=== PATIENT | female | born 1955 | race Caucasian/White ===

== ENCOUNTER 2024-02-27 23:29 | Observation (INO) ==
--- NOTE | 2024-02-27 23:39 | ED.PDOC ---
General ED Provider: Dr. MI ZAPATA MD Chief Complaint: Arrhythmia Stated Complaint: Pt has h/o afib s/p ablation one year ago, CHF and presents with generalized weakness. States symptoms started 4-5 days ago, initially mild. Started feeling worse 2 days ago. Reports aching all over, nausea, chest pain when she eats or drinks, flank pain. Has felt feverish and had chills but has not checked temperature. Denies cough. Feels SOB with exertion. States she made herself vomit once, but otherwise no vomiting. Denies palpitations or syncope. Reports urinary frequency, no dysuria. Takes eliquis, digoxin, and metoprolol, but has not taken any of her meds today because she has felt too bad. on EMS arrival was found to be in afib with RVR with initial rate around 200. 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 Time Seen by Provider: 02/27/24 23:34 Mode of Arrival: Ambulance Information Source: Patient and EMT Exam Limitations: No limitations Nursing and Triage Documentation Reviewed and Agree: Yes What is Opioid Naive?: *Opioid Naive implies the patient is not already taking opioids or not chronically receiving opioids on a daily basis. *PRN dosing is not "usually" associated with tolerance. *Patients are at higher risk of over-sedation and aspiration. What is Opioid Tolerant?: *Opioid Tolerance implies less than the expected response to an opioid. *Acquired tolerance is defined by the patient taking 60mg of oral morphine daily (or equianalgesic dose of another opioid) for 1 week or more. *Often associated with chronic pain. *May take more than usual dose to achieve desired pain control. Review of Systems Review Of Systems Constitutional: Reports Chills, Malaise and Sweats Eyes: Reports No symptoms Ears, Nose, Mouth, Throat: Reports No symptoms Respiratory: Reports Shortness of Breath; Denies Cough Cardiac: Reports Chest pain; Denies Palpitations or Syncope GI: Reports Difficulty swallowing, Nausea and Vomiting; Denies Abdominal pain or Diarrhea : Reports Frequency and Flank pain; Denies Dysuria Musculoskeletal: Reports No symptoms Skin: Reports No symptoms Neurological: Reports Weakness Endocrine: Reports No symptoms [facility] Medical History (Updated 02/28/24 @ 01:17 by MI ZAPATA MD) Hypertension I10 - Essential (primary) hypertension (ICD-10) Family History (Updated 09/12/20 @ 14:29 by CANDICE NGUYEN) Mother Hypertension FATHER No problems noted. Social History (Updated 09/12/20 @ 14:28 by CANDICE NGUYEN) Smoking and tobacco status: Never smoker Alcohol intake: never Substance use type: does not use Physical Exam Physical Exam Appearance: Reports Well-appearing, No pain distress and Well-nourished Ill-appearing: None Pain Distress: None Eyes: Reports Conjunctiva clear ENT: Reports Nose normal Neck: Supple Respiratory: Reports Airway patent, Breath sounds clear, Breath sounds equal and Respirations nonlabored Cardiovascular: Reports Irregular rhythm and Tachycardia GI/: Reports Soft and Bowel sounds normal; Denies Nontender (tenderness to suprapubic area without rebound, guarding or rigidity.) Musculoskeletal: Reports ROM intact Skin: Reports Warm and Dry Neurological: Reports Alert and Oriented; Denies Focal Deficit Psychiatric: Reports Mood appropriate Interpretation EKG Interpretation EKG Interpretation By: ED Physician Time of EKG #1: 23:29 Rate: Tachy Rhythm: Other (afib with RVR) Robinson: NL ST Segment: Other (ST depression laterally, no GEOFF) Radiology Interpretation Radiology Interpretation By: Radiologist Radiology Results: No acute changes Exam Interpreted: CXR Physician Notification Case Discussed Physician Notified: Mick Nguyen Time of Notification: 01:16 Admit/Transition Orders Entered by ED Provider: Yes Admit To: Observation Critical Care Note Critical Care Note Total Critical Care Time (mins): 35 Comments: Independent of procedures. involved history, exam, ordering labs, interpreting EKG/labs/CXR, ordering medications, re-evaluating, talking to admitting provider. Course Course 02/27/24 23:38 02/27/24 23:38 Orders, Labs, Meds: Lab Review 02/27/24 23:38 WBC 14.65 H RBC 4.94 Hgb 15.9 Hct 48.7 H MCV 98.6 MCH 32.2 H MCHC 32.6 RDW Coeff of Corin 13.6 Plt Count 280 Neutrophils % (Manual) 76.0 H Band Neutrophils % 1.0 Lymphocytes % (Manual) 8.0 L Monocytes % (Manual) 13.0 H Reactive Lymphocytes 2.0 Anisocytosis Not present Sodium 138.5 Potassium 3.61 Chloride 99.0 Carbon Dioxide 25.6 Anion Gap 17.51 BUN 18.3 H Creatinine 1.07 Estimated GFR (MDRD) 51.00 BUN/Creatinine Ratio 17.10 Glucose 140.9 H Calcium 9.22 Magnesium 1.88 Total Bilirubin 1.95 H AST 29.3 ALT 18.8 Alkaline Phosphatase 105.9 Troponin I Pending NT-Pro-B Natriuret Pep Pending Total Protein 7.81 Albumin 4.46 Globulin 3.35 Albumin/Globulin Ratio 1.33 TSH Pending Digoxin 0.49 L Orders Category Date Time Status EKG-(ED ONLY) Stat CARDIO 02/27/24 23:34 Completed PULSE OX [CONTINUOUS PULSE OX (NURSING)] PULSEOX CARE 02/27/24 23:34 Active Rn Pediatric [ED CEN[employer]AL SERVICE [employer]Y DISTRIBUTOR APPLIED] .ONCE EMERGENCY 02/27/24 23:34 Active IV [ED IV/MEDIPORT/POWERPORT] .ONCE EMERGENCY 02/27/24 23:34 Active CBC W/ AUTO DIFF Stat LAB 02/27/24 23:38 Completed CMP [COMPREHENSIVE METABOLIC PANEL] Stat LAB 02/27/24 23:38 Results DIGOXIN Stat LAB 02/27/24 23:38 Completed MAGNESIUM Stat LAB 02/27/24 23:38 Results MANUAL DIFFERENTIAL Stat LAB 02/27/24 23:38 Completed NT-PROBNP(ED) Stat LAB 02/27/24 23:38 Results PT WITH INR Stat LAB 02/27/24 23:38 Received PTT [PARTIAL THROMBOPLASTIN TIME] Stat LAB 02/27/24 23:38 Received TROPONIN I Stat LAB 02/27/24 23:38 Results TSH [THYROID STIMULATING HORMONE] Stat LAB 02/27/24 23:38 Results 0.9 % Sodium Chloride [Saline Flush] Meds 02/27/24 23:34 Active 1 syr IVF PRN PRN Diltiazem HCl [Cardizem] 125 mg Meds 02/27/24 23:45 Active 0.9 % Sodium Chloride [Sodium Chloride 100Ml] 100 ml IV TITRATION Sodium Chloride 0.9% [Sodium Chloride] 1,000 ml Meds 02/27/24 23:34 Active IV BOLUS CHEST, 1V AP ONLY Stat RADS 02/27/24 23:34 Ordered Medications Generic Name Dose Route Start Last Admin Trade Name Freq PRN Reason Stop Dose Admin Sodium Chloride 1,000 mls @ 250 mls/hr 02/27/24 23:34 02/28/24 00:05 Sodium Chloride IV 10/26/24 03:33 250 mls/hr BOLUS ONE Administration Diltiazem HCl 125 mg/ Sodium 125 mls @ 5 mls/hr 02/27/24 23:45 02/28/24 00:03 Chloride IV 5 mg/hr TITRATION GREGORY 5 mls/hr Administration Protocol 5 MG/HR Sodium Chloride 1 syr 02/27/24 23:34 0.9% Sodium Chloride 10 Ml Disp.Syrin IVF PRN PRN To flush IV Vital Signs: Temp Pulse Resp BP Pulse Ox 02/27/24 23:30 98.7 F 180 H 20 0/0 L 94 L MILTON Risk Score MILTON Risk Score: Risk Score Odds of by 30D 0 0.1 (0.1-0.2) 1 0.3 (0.2-0.3) 2 0.4 (0.3-0.5) 3 0.7 (0.6-0.9) 4 1.2 (1.0-1.5) 5 2.2 (1.9-2.6) 6 3.0 (2.5-3.6) 7 4.8 (3.8-6.1) Physician Progress Note: Discussed lab, EKG and CXR results with patient. She was started on a diltiazem drip on arrival and given small fluid bolus. Her drip is now at 15mg/hr and current HR in 110s-120s with BP 158/95. Labs show leukocytosis, and elevated BNP, but CXR does not show any evidence of pulmonary edema or pleural effusion or other acute abnormality. Her troponin is normal. Cath UA concerning for possible UTI so will order rocephin. I spoke with Mick Nguyen about admission and she has agreed with admission here. Discharge Plan Discharge Patient Disposition: ADMITTED INPATIENT Discharge Problem: Atrial fibrillation with RVR, Acute UTI Prescriptions: No Action sertraline 50 mg tablet 50 mg PO DAILY Did you review [place] ASSOCIATE PROFESSOR OF GEOLOGY for ALL controlled substances?: Not Applicable ED Provider: MI ZAPATA Condition: Stable
[2024-02-27 23:46] LABS: HEMATOCRIT 48.7 % (37.0-47.0); HEMOGLOBIN 15.9 g/dl (12.0-16.0); MEAN CORPUSCULAR HEMOGLOBIN 32.2 pg (27.0-31.0); MEAN CORPUSCULAR HGB CONC 32.6 (31.8-35.4); MEAN CORPUSCULAR VOLUME 98.6 fl (81.0-99.0); PLATELET COUNT 280 10^3/uL (140-440); RDW COEFFICIENT OF VARIATION 13.6 % (11.6-14.8); RED BLOOD COUNT 4.94 10^6/ul (4.20-5.40); WHITE BLOOD COUNT 14.65 K/ul (4.6-10.2)
[2024-02-27 23:52] LABS: ANISOCYTOSIS NOT PRESENT (NOT PRESENT)
[2024-02-27 23:57] LABS: ALANINE AMINOTRANSFERASE 18.8 U/L (0-35); ALBUMIN 4.46 g/dL (3.5-5.0); ALKALINE PHOSPHATASE 105.9 U/L (53-141); ASPARTATE AMINO TRANSFERASE 29.3 U/L (14-36); BILIRUBIN,TOTAL 1.95 mg/dL (0.2-1.3); BLOOD UREA NITROGEN 18.3 mg/dL (7-17); CALCIUM 9.22 mg/dL (8.4-10.2); CARBON DIOXIDE 25.6 mmol/L (22-30.0); CREATININE 1.07 mg/dL (0.60-1.30); GLUCOSE 140.9 mg/dL (74-106); MAGNESIUM 1.88 mg/dL (1.6-2.3); POTASSIUM 3.61 mmol/L (3.5-5.1); SODIUM 138.5 mmol/L (134.5-145); TOTAL PROTEIN 7.81 g/dL (6.3-8.2)
[2024-02-28] MEDS: CARDIZEM 125 MG in SODIUM CHLORIDE 100ML 100 ML IV SCH (00:03)
[2024-02-28] MEDS: SODIUM CHLORIDE 1,000 ML IV ONE (00:05)
[2024-02-28 00:08] LABS: TROPONIN I 0.055 ng/ml (0.0000-0.120)
--- NOTE | 2024-02-28 00:26 | DI ---
EXAM: CHEST, ONE-VIEW HISTORY: Shortness of breath FINDINGS: Cardiac and mediastinal contours are normal. Pulmonary vasculature is normal. Lungs are clear. Bon y thorax is unremarkable. IMPRESSION: Within normal limits
[2024-02-28 00:27] LABS: PARTIAL THROMBOPLASTIN TIME 27.3 SEC (23.9-40.0); PROTHROMBIN TIME 10.8 SEC (9.3-11.0); THYROID STIMULATING HORMONE 2.31 uIU/L (0.465-4.68)
[2024-02-28 00:56] LABS: BILIRUBIN,URINE Negative (NEGATIVE); CLARITY,URINE Cloudy (CLEAR); COLOR,URINE Yellow (YELLOW); GLUCOSE, URINE (UA) Negative (NEGATIVE); KETONES,URINE Negative (NEGATIVE); LEUKOCYTE ESTERASE ,URINE 2+ (NEGATIVE); NITRITE,URINE Positive (NEGATIVE); PH,URINE 5.5 (5-9); PROTEIN,URINE 2+ (NEGATIVE); URINE, BLOOD 3+ (NEGATIVE)
[2024-02-28 01:00] LABS: URINE RBC, MICROSCOPIC 20-30 (0-2)
[2024-02-28 01:01] LABS: BACTERIA,URINE 1+ (NOT PRESENT); MUCUS,URINE 1+ (NOT PRESENT)
[2024-02-28] MEDS: ROCEPHIN 1 GM VIAL IVP ONE (01:30)
[2024-02-28 01:44] LABS: SARS COV-2 RNA RAPID NAAT NEGATIVE (NEGATIVE)
[2024-02-28 03:31] VITALS: BMI 29.2
[2024-02-28] MEDS: TYLENOL PO PRN (04:10)
[2024-02-28] MEDS: ZOLOFT PO SCH (08:51)
--- NOTE | 2024-02-28 09:11 | PCM ---
Date of Service Date Seen by Provider: 02/28/24 Time Seen by Provider: 08:30 Admit Day/Time Admission Date: 02/28/24 Reason for Admission Chief Complaint: A FIB RUR, ACUTE UTI Hospital Provider Hospital Provider[facility] SAROJ SIMONS, [facility] History of Present Illness History of Present Illness: 69 yo female presented to the ER with complaints of chest pain, fatigue, and shortness of breath. States that she has not been feeling well over the past month. Has had zero energy and then develops sudden chest pain/back pain/palpitations. Has pmh of afib and had an ablation completed by Dr. Fang in April of 2023. Reports she has not had any follow-ups with him because her car broke down. States she ran out of refills of her medication and is due to go see her PCP but hasn't. Was out of her medications for a couple days and then didn't feel well yesterday so she didn't take it. States she was told she has congestive heart failure during her last hospitalization but doesn't know what that means. Case Discussed With Case Discussed With: Patient's case was discussed with the ER Physicians, Dr. Goode. [facility] Medical History (Updated 02/28/24 @ 09:27 by SAROJ SIMONS) Restrictive lung disease J98.4 - Other disorders of lung (ICD-10) Hyperlipidemia E78.5 - Hyperlipidemia, unspecified (ICD-10) GERD (gastroesophageal reflux disease) K21.9 - Gastro-esophageal reflux disease without esophagitis (ICD-10) Atrial fibrillation I48.91 - Unspecified atrial fibrillation (ICD-10) CHF (congestive heart failure) Diastolic I50.9 - Heart failure, unspecified (ICD-10) Hypertension I10 - Essential (primary) hypertension (ICD-10) Surgical History History of radiofrequency ablation procedure for cardiac arrhythmia Z98.890 - Other specified postprocedural states (ICD-10) Family History Mother Hypertension FATHER No problems noted. Social History Smoking and tobacco status: Never smoker Alcohol intake: never Substance use type: does not use Allergies Allergies Allergy/AdvReac Type Severity Reaction Status Date / Time No Known Allergies Allergy Verified 02/28/24 00:05 Current Medications Home Medications sertraline 50 mg tablet 50 mg PO DAILY 06/27/21 [History Confirmed 02/28/24 Last Taken Unknown] apixaban 5 mg tablet (Eliquis) 5 mg PO DAILY 02/28/24 [History Confirmed 02/28/24 Last Taken Unknown] digoxin 125 mcg (0.125 mg) tablet 125 mcg PO DAILY 02/28/24 [History Confirmed 02/28/24 Last Taken Unknown] ergocalciferol (vitamin D2) 1,250 mcg (50,000 unit) capsule 1,250 mcg PO WEEKLY 02/28/24 [History Confirmed 02/28/24 Last Taken Unknown] fluticasone propionate 100 mcg/actuation blister powder for inhalation (Flovent Diskus) 2 inh inhalation BID 02/28/24 [History Confirmed 02/28/24 Last Taken Unknown] metoprolol tartrate 50 mg tablet 50 mg PO 2XD 02/28/24 [History Confirmed 02/28/24 Last Taken Unknown] pantoprazole 40 mg tablet,delayed release 40 mg PO QAM 02/28/24 [History Confirmed 02/28/24 Last Taken Unknown] Home Acetaminophen (Acetaminophen 325 Mg Tablet) 650 mg PO Q4H PRN PRN Reason: Pain Last Admin: 02/28/24 04:10 Dose: 650 mg Apixaban (Apixaban 5 Mg Tab) 5 mg PO BID [facility] Digoxin (Digoxin 125 Mcg Tablet) 125 mcg PO DAILY [facility] Fluticasone Propionate (Fluticasone Propionate 220 Mcg Inh) 1 puff IH BID GREGORY Diltiazem HCl 125 mg/ Sodium (Chloride) 125 mls @ 5 mls/hr IV TITRATION GREGORY; Protocol Last Titration: 02/28/24 06:30 Dose: 5 mg/hr, 5 mls/hr Metoprolol Tartrate (Metoprolol Tartrate 50 Mg Tablet) 50 mg PO 2XD GREGORY Pantoprazole Sodium (Pantoprazole Sodium 40 Mg Tablet.Dr) 40 mg PO QDAC2 [facility] Sertraline HCl (Sertraline Hcl 50 Mg Tablet) 50 mg PO DAILY GREGORY Last Admin: 02/28/24 08:51 Dose: 50 mg Sodium Chloride (0.9% Sodium Chloride 10 Ml Disp.Syrin) 1 syr IVF PRN PRN PRN Reason: To flush IV Discontinued Medications Ceftriaxone Sodium (Ceftriaxone 1 Gm Vial) 1 gm IVP ONCE ONE Stop: 02/28/24 01:18 Last Admin: 02/28/24 01:30 Dose: 1 gm Sodium Chloride (Sodium Chloride) 1,000 mls @ 250 mls/hr IV BOLUS ONE Stop: 02/28/24 03:33 Last Admin: 02/28/24 00:05 Dose: 250 mls/hr Non-Formulary Medication (Fluticasone Propionate [Flovent Diskus]) 2 inh IH BID GREGORY Opioid Naive vs. Tolerant Does Patient Take Opioids?: No Is Patient Opioid Naive?: Yes What is Opioid Naive?: *Opioid Naive implies the patient is not already taking opioids or not chronically receiving opioids on a daily basis. *PRN dosing is not "usually" associated with tolerance. *Patients are at higher risk of over-sedation and aspiration. Is Patient Opioid Tolerant?: No What is Opioid Tolerant?: *Opioid Tolerance implies less than the expected response to an opioid. *Acquired tolerance is defined by the patient taking 60mg of oral morphine daily (or equianalgesic dose of another opioid) for 1 week or more. *Often associated with chronic pain. *May take more than usual dose to achieve desired pain control. Review of Systems Constitutional: Reports Fatigue and Weakness Head: Reports Normocephalic Eyes: Reports No symptoms Ears: Reports No symptoms Nose: Reports No symptoms Mouth: Reports No symptoms Throat: Reports No symptoms Cardiovascular: Reports Chest pain Respiratory: Reports Shortness of air Gastrointestinal: Reports No symptoms Genitourinary: Reports No Symptoms Musculoskeletal: Reports No symptoms Endocrine: Reports No symptoms Hematology: Reports No symptoms Immunology: Reports No symptoms Neurological: Reports No symptoms Psychiatric: Reports No symptoms Physical examination Most Recent Vital Signs: Most Recent Vital Signs Temperature 99.0 F 02/28/24 05:11 Temperature Source Temporal Artery Scan 02/28/24 05:11 Temperature Source Oral 02/27/24 23:30 Pulse Rate 106 H 02/28/24 08:21 Respiratory Rate 16 02/28/24 08:21 Blood Pressure 155/92 H 02/28/24 08:21 Blood Pressure Mean 113 02/28/24 08:21 Blood Pressure Right Arm 158/90 02/28/24 02:30 Blood Pressure Location Right Arm 02/28/24 08:21 Blood Pressure Position Sitting 02/28/24 08:21 O2 Sat by Pulse Oximetry 97 02/28/24 08:21 Oxygen Delivery Method Nasal Cannula 02/28/24 09:00 Oxygen Flow Rate 1 02/28/24 08:21 Height 5 ft 5 in 02/28/24 02:30 Weight 79.9 kg 02/28/24 02:30 Telemetry Type Bedside Monitor 02/28/24 07:00 Telemetry Monitoring Continues 02/28/24 07:00 Telemetry Heart Rate 96 02/28/24 07:00 Telemetry SPO2 94 02/28/24 07:00 EKG QRS Interval 0.08 02/28/24 07:00 Telemetry Strip Reading Afib w/PVC 02/28/24 07:00 Pulse Oximetry Type Bedside Monitor 02/28/24 07:00 Pulse Oximetry Monitoring Continues 02/28/24 07:00 Appearance: Positive No Apparent Distress and Alert and Oriented x3 Skin: Positive Warm and Good Turgor HEENT: Positive Normocephalic and PERRLA Neck: Positive Supple and Midline Trachea Chest/Lungs: Positive Symmetrical With Equal Breath Sounds, Clear to Auscultation Bilaterally and Good Air Movement all 4 Lung Hoffman Heart: Positive Pulses Normal, Irregular Rhythm and Tachycardia GI/: Positive Soft, Nontender, Bowel Sounds Normal and No Distention Musculoskeletal: Positive Not Examined Extremities: Positive Intact Peripheral Pulses, Stable Joints Without Laxity and Good ROM in All Joints Neurological: Positive Sensation Intact, Motor intact, Alert, Oriented and Muscle Strength 5/5 in Upper and Lower Extremities Bilaterally Labs This Visit Labs This Visit: Labs This Visit 02/27/24 02/28/24 02/28/24 23:38 00:48 01:24 WBC 14.65 H RBC 4.94 Hgb 15.9 Hct 48.7 H MCV 98.6 MCH 32.2 H MCHC 32.6 RDW Coeff of Corin 13.6 Plt Count 280 Neutrophils % (Manual) 76.0 H Band Neutrophils % 1.0 Lymphocytes % (Manual) 8.0 L Monocytes % (Manual) 13.0 H Reactive Lymphocytes 2.0 Anisocytosis Not present PT 10.8 INR 1.04 APTT 27.3 Sodium 138.5 Potassium 3.61 Chloride 99.0 Carbon Dioxide 25.6 Anion Gap 17.51 BUN 18.3 H Creatinine 1.07 Estimated GFR (MDRD) 51.00 BUN/Creatinine Ratio 17.10 Glucose 140.9 H Calcium 9.22 Magnesium 1.88 Total Bilirubin 1.95 H AST 29.3 ALT 18.8 Alkaline Phosphatase 105.9 Troponin I 0.055 NT-Pro-B Natriuret Pep 4370 H Total Protein 7.81 Albumin 4.46 Globulin 3.35 Albumin/Globulin Ratio 1.33 TSH 2.310 Urine Color Yellow Urine Clarity Cloudy Urine pH 5.5 Ur Specific Carey >=1.030 Urine Protein 2+ H Urine Glucose (UA) Negative Urine Ketones Negative Urine Blood 3+ H Urine Nitrite Positive H Urine Bilirubin Negative Urine Urobilinogen 1.0 H Ur Leukocyte Esterase 2+ H Urine Microscopic RBC 20-30 Urine Microscopic WBC 10-20 Ur Squamous Epith Cells Not Reportable Urine Bacteria 1+ Urine Mucus 1+ Digoxin 0.49 L SARS CoV-2 RNA Rapid ABAD Negative Microbiology This Visit 02/28/24 00:48 Urine,Catheterized Urine Culture - Preliminary Imaging Imaging: EXAM: CHEST, ONE-VIEW HISTORY: Shortness of breath FINDINGS: Cardiac and mediastinal contours are normal. Pulmonary vasculature is normal. Lungs are clear. Bony thorax is unremarkable. IMPRESSION: Within normal limits EKG Interpretation EKG Interpretation: Afib RVR Review Statement Review Statement: I have independently reviewed and interpreted the labs/EKGs/imaging that were ordered by the ER provider. I have reviewed all outside records that are available currently in our EMR including imaging/notes/labs from previous visits. Plan Plan: 1. Afib RVR - cardizem gtt per protocol, restart home medications, telemetry 2. UTI - urine culture showing no growth currently, will hold rocephin for now 3. Chronic Diastolic Heart Failure - last echo done 04/26 EF 40% with mod mitral and tricuspid regurg, will order after afib rvr resolves, daily weight, I&O 4. Hypertension - chronic, continue home medications 5. GERD - chronic, continue home medications DVT Prophylaxis: Eliquis Time Spent: Greater than 80 minutes spent with patient, 50% of the time spent with this patient was devoted to counseling and coordination of care. [facility]annin minutes spent discussing advance care planning. Disposition: Admit to: Med/Surg Observation Full Code Discussed Plan of Care with Dr. Rex Wilson. Medications Medication Orders: Medications Ordered Category Date Time Status 0.9 % Sodium Chloride [Saline Flush] Meds 02/27/24 23:34 Active 1 syr IVF PRN PRN Acetaminophen [Tylenol] Meds 02/28/24 03:52 Active 650 mg PO Q4H PRN Apixaban [Eliquis] Meds 02/28/24 09:00 Ordered 5 mg PO DAILY Digoxin [Lanoxin] Meds 02/28/24 09:00 Active 125 mcg PO DAILY Diltiazem HCl [Cardizem] 125 mg Meds 02/27/24 23:45 Active 0.9 % Sodium Chloride [Sodium Chloride 100Ml] 100 ml IV TITRATION Metoprolol Tartrate [Lopressor] Meds 02/28/24 09:00 Active 50 mg PO 2XD Pantoprazole Sodium [Protonix] Meds 02/28/24 09:00 Active 40 mg PO QDAC2 Sertraline HCl [Zoloft] Meds 02/28/24 09:00 Active 50 mg PO DAILY fluticasone propionate [Flovent Diskus] Meds 02/28/24 09:00 Active 2 inh IH BID
[2024-02-28] MEDS: LANOXIN PO SCH (09:38)
[2024-02-28] MEDS: ELIQUIS PO SCH (09:38)
[2024-02-28] MEDS: PROTONIX PO SCH (09:38)
[2024-02-28] MEDS: LOPRESSOR PO SCH (09:38)
[2024-02-28] MEDS: FLOVENT HFA 220 MCG IH SCH (10:05)
[2024-02-28] MEDS: NORVASC PO ONE (15:33)
[2024-02-28] MEDS: HYDRALAZINE HCL IVP ONE (17:10)
[2024-02-29 04:45] LABS: BASOPHILS # (AUTO) 0.1 K/uL (0-0.2); BASOPHILS % (AUTO) 0.8 % (0.0-3.0); EOSINOPHILS # (AUTO) 0.2 K/ul (0.0-0.7); HEMATOCRIT 45.7 % (37.0-47.0); HEMOGLOBIN 14.6 g/dl (12.0-16.0); IMMATURE GRANULOCYTE % (AUTO) 0.4 % (0.0-5.0); LYMPHOCYTES # (AUTO) 2.6 K/uL (0.60-3.4); LYMPHOCYTES % (AUTO) 26.7 (10.0-50.0); MEAN CORPUSCULAR HEMOGLOBIN 31.7 pg (27.0-31.0); MEAN CORPUSCULAR HGB CONC 31.9 (31.8-35.4); MEAN CORPUSCULAR VOLUME 99.3 fl (81.0-99.0); MONOCYTES # (AUTO) 1.4 K/uL (0.4-2.0); MONOCYTES % (AUTO) 14.2 (0-10); NEUTROPHILS # (AUTO) 5.5 K/ul (2.0-6.9); NEUTROPHILS % (AUTO) 55.9 % (42.2-75.2); PLATELET COUNT 257 10^3/uL (140-440); RDW COEFFICIENT OF VARIATION 13.5 % (11.6-14.8); WHITE BLOOD COUNT 9.81 K/ul (4.6-10.2)
[2024-02-29 04:59] LABS: ALANINE AMINOTRANSFERASE 27.9 U/L (0-35); ALBUMIN 3.73 g/dL (3.5-5.0); ALKALINE PHOSPHATASE 96.8 U/L (53-141); ASPARTATE AMINO TRANSFERASE 43.3 U/L (14-36); BILIRUBIN,TOTAL 0.34 mg/dL (0.2-1.3); BLOOD UREA NITROGEN 15.8 mg/dL (7-17); CALCIUM 8.69 mg/dL (8.4-10.2); CARBON DIOXIDE 27.2 mmol/L (22-30.0); CHLORIDE 107.9 mmol/L (98-107); CREATININE 0.85 mg/dL (0.60-1.30); GLUCOSE 119.3 mg/dL (74-106); POTASSIUM 3.59 mmol/L (3.5-5.1); TOTAL PROTEIN 6.95 g/dL (6.3-8.2)
[2024-02-29] MEDS: COZAAR PO SCH (08:18)
[2024-02-29] MEDS: LANOXIN PO ONE (09:43)
--- NOTE | 2024-02-29 13:06 | DCSUM ---
Admission Date Admission Date: 02/28/24 Discharge Date Discharge Date: 02/29/24 Admission Diagnosis Admission Diagnosis: 1. Afib RVR 2. UTI 3. Chronic Diastolic Heart Failure 4. Hypertension 5. GERD Discharge Diagnosis Discharge Diagnosis: 1. Afib RVR - Resolved 2. UTI - Ruled out 3. Chronic Diastolic Heart Failure - Stable 4. Hypertension - chronic, uncontrolled, adjusted medications 5. GERD - chronic, stable Hospital Provider Hospital Provider[facility] SAR[facility]J [facility], [facility] Summary of History and Physical Summary of History and Physical: 69 yo female presented to the ER with complaints of chest pain, fatigue, and shortness of breath. States that she has not been feeling well over the past month. Has had zero energy and then develops sudden chest pain/back pain/palpitations. Has pmh of afib and had an ablation completed by Dr. Fang in April of 2023. Reports she has not had any follow-ups with him because her car broke down. States she ran out of refills of her medication and is due to go see her PCP but hasn't. Was out of her medications for a couple days and then didn't feel well yesterday so she didn't take it. States she was told she has congestive heart failure during her last hospitalization but doesn't know what that means. Hospital Course Subjective: During stay, patient was initially on cardizem gtt for treatment of Afib RVR. She was weaned off of gtt before noon yesterday. Takes digoxin and metoprolol. Dig level was low. Increased to 250 mcg daily. Tolerating well. HR remaining rate controlled. UA was questionable for UTI. Treated with rocephin in ER. Urine culture showed no growth. Did not continue antibiotics. Patient is not symptomatic. Echo completed today and showed improved EF of 60%. Last echo completed in 04/26 with EF of 40%. No s/sx of fluid overload. Patient was not taking eliquis twice a day and instructed it is to be taken bid. BP ran high yesterday. Received 1 dose of norvasc without relief. Required IV hydralazine which was effective. Started on losartan 50 mg daily and has tolerated well and BP responded appropriately. No further changes to home medications. Recommend follow-up with Cardiology upon discharge since it has been over 1 year. Appearance: Pleasant, No Apparent Distress and Alert HEENT: MMM, Supple and No JVD CVS: No Murmur Abdomen: Soft, Non-Tender and No Distention Respiratory: No Dyspnea Extremities: No Edema Vital Signs: Most Recent Vital Signs Temperature 97.7 F 02/29/24 10:00 Temperature Source Temporal Artery Scan 02/29/24 10:00 Temperature Source Oral 02/27/24 23:30 Pulse Rate 80 02/29/24 10:00 Respiratory Rate 19 02/29/24 10:00 Blood Pressure 153/85 H 02/29/24 10:00 Blood Pressure Mean 107 02/29/24 10:00 Blood Pressure Right Arm 158/90 02/28/24 02:30 Blood Pressure Location Right Arm 02/29/24 10:00 Blood Pressure Position Supine 02/29/24 10:00 O2 Sat by Pulse Oximetry 94 L 02/29/24 10:00 Oxygen Delivery Method Room Air 02/29/24 12:00 Oxygen Flow Rate 0 02/28/24 20:00 Height 5 ft 5 in 02/28/24 02:30 Weight 79.9 kg 02/28/24 02:30 Telemetry Type Bedside Monitor 02/29/24 07:00 Telemetry Monitoring Continues 02/29/24 07:00 Irregular Telemetry Rate (Approximate) 70-80 BPM 02/28/24 13:00 Telemetry Heart Rate 70 02/29/24 07:00 Telemetry SPO2 97 02/29/24 07:00 EKG QRS Interval 0.08 02/29/24 07:00 Telemetry Strip Reading Atrial Flutter 02/29/24 07:00 Pulse Oximetry Type Bedside Monitor 02/29/24 07:00 Pulse Oximetry Monitoring Continues 02/29/24 07:00 Imaging: EXAM: CHEST, ONE-VIEW HISTORY: Shortness of breath FINDINGS: Cardiac and mediastinal contours are normal. Pulmonary vasculature is normal. Lungs are clear. Bony thorax is unremarkable. IMPRESSION: Within normal limits Lab Results Last 24 Hours: 02/29/24 04:35 WBC 9.81 RBC 4.60 Hgb 14.6 Hct 45.7 MCV 99.3 H MCH 31.7 H MCHC 31.9 RDW Coeff of Corin 13.5 Plt Count 257 Immature Gran % (Auto) 0.4 Neut % (Auto) 55.9 Lymph % (Auto) 26.7 [place] % (Auto) 14.2 H Eos % (Auto) 2.0 Baso % (Auto) 0.8 Neut # (Auto) 5.5 Lymph # (Auto) 2.6 [place] # (Auto) 1.4 Eos # (Auto) 0.2 Baso # (Auto) 0.1 Immature Gran # (Auto) 0.0 Sodium 141.0 Potassium 3.59 Chloride 107.9 H Carbon Dioxide 27.2 Anion Gap 9.49 BUN 15.8 Creatinine 0.85 Estimated GFR (MDRD) 66.00 BUN/Creatinine Ratio 18.58 Glucose 119.3 H Calcium 8.69 Total Bilirubin 0.34 D AST 43.3 H ALT 27.9 Alkaline Phosphatase 96.8 Total Protein 6.95 Albumin 3.73 Globulin 3.22 Albumin/Globulin Ratio 1.15 Discharge Instructions Discharge Planning: Discharge Planning > 40 minutes If patient is discharged with left ventricular systolic dysfunction: NA Discharged with a beta rae? [] If no, why not? [] Discharged with an margi/arb? [] If no, why not? 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 MEDICATIONS: LOYD Discharge Medications: Medications at Discharge (Home Meds & RX) sertraline 50 mg tablet 50 mg PO DAILY 06/27/21 apixaban 5 mg tablet (Eliquis) 5 mg PO DAILY 02/28/24 digoxin 125 mcg (0.125 mg) tablet 125 mcg PO DAILY 02/28/24 ergocalciferol (vitamin D2) 1,250 mcg (50,000 unit) capsule 1,250 mcg PO WEEKLY 02/28/24 fluticasone propionate 100 mcg/actuation blister powder for inhalation (Flovent Diskus) 2 inh inhalation BID 02/28/24 metoprolol tartrate 50 mg tablet 50 mg PO 2XD 02/28/24 pantoprazole 40 mg tablet,delayed release 40 mg PO QAM 02/28/24 Discharge Plan Discharge Discharge Orders: Discharge Patient (ONCE); Ordered 02/29/24 Ordered By: BARRY NGUYEN Activity Restrictions/Additional Instructions: DIAGNOSIS: ATRIAL FIBRILLATION DIET: CARDIAC ACTIVITY: TOLERATED FOLLOW-UP WITH PCP THIS WEEK, SCHEDULE 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 MEDICATIONS: LOYD Instructions: A-fib (Atrial Fibrillation) (GEN) Patient Disposition: HOME WITH FAMILY CARE Prescriptions: New losartan 25 mg Tablet 50 mg PO DAILY Qty: 30 0RF Eliquis 5 mg Tablet 5 mg PO BID Qty: 60 0RF digoxin 250 mcg (0.25 mg) tablet 250 mcg PO DAILY Qty: 30 0RF Continued sertraline 50 mg tablet 50 mg PO DAILY metoprolol tartrate 50 mg tablet 50 mg PO 2XD pantoprazole 40 mg tablet,delayed release (DR/EC) 40 mg PO QAM ergocalciferol (vitamin D2) 1,250 mcg (50,000 unit) capsule 1,250 mcg PO WEEKLY fluticasone propionate [Flovent Diskus] 100 mcg/actuation blister with device 2 inh inhalation BID Discontinued digoxin 125 mcg (0.125 mg) tablet 125 mcg PO DAILY Eliquis 5 mg tablet 5 mg PO DAILY Did you review [place] [employer] for ALL controlled substances?: No Discussed opioids are addictive and Narcan is available by prescription or from pharmacy.: No Condition: Stable
[2024-02-29 13:46] VITALS: BP 179/93; PULSE 87; RESP 17; TEMP 96.7
--- NOTE | 2024-03-01 15:09 | ECHO2D ---
Date of Exam: 02/29/2024 Ordering Physician: HOSPITALIST--SAMPSON Room #: SCU-2 Reason for Echo: AFIBwith RVR, CHF, HTN, HYPERLIPIDEMIA, HX OF ABLATION, RESTRICTIVE LUNG DISEASE M-Mode Normal Adult Results LV Dimensions Normal Adult Results AoV Opening excursions >1.6 >1.6 LVEDD-base- 3.5-5.8 4.9 Ao root dimensions 2.0-3.7 3.1 LVESD-base- 3.1-4.6 L. Atrium dimensions 1.9-3.8 5.4 Post. Wall thickness 0.8-1.1 1.3 IV septum (thickness) 0.7-1.2 1.5 Post. Wall excursion 0.72-1.3 NORMAL Septal motion NORMAL Systolic motion R. Ventricular cavity 1.5-2.0 NORMAL LVEF 60% 60% Paradoxical septal wall motion NORMAL 2-D : 2-D M Mode Echocardiogram was performed using apical four chamber and left parasternal long and short axis views. Mitral, tricuspid and aortic valves appear to be normal. Contractility of the left ventricle seems to be normal, so is the cavity size. Enlarged left atrial cavity size. Aortic root appears to be normal. There is no pericardial effusion. There is no thrombus noted in the left ventricle or left atrial cavity. COLOR FLOW: Moderate tricuspid regurgitation, mild mitral regurgitation M-MODE: MV: NORMAL AV: NORMAL TV: NORMAL PV: CHAMBER SIZE: ENLARGED LEFT ATRIAL CAVITY WALL MOTION: NORMAL PERICARDIUM: NORMAL INTERPRETATION: 1. MODERATE LEFT VENTRICLE HYPERTROPHY 2. ENLARGED LEFT ATRIAL CAVITY (5.3 CM) 3. NORMAL VALVES BY 2 "D" "M" MODE 4. NORMAL LEFT VENTRICLE SIZE AND LEFT VENTRICLE CONTRACTILITY 5. COLOR FLOW: MODERATE TRICUSPID REGURGITATION, MILD MITRAL REGURGITATION MTDD
== END 2024-02-29 17:35 | disposition home or self-care (01) ==
LOC: ED 23:29 → SCU 23:29
PROVIDERS: ADMIT Hospitalist; ATTEND Nurse Practitioner Family
DX: I50.32 Chronic diastolic (congestive) heart failure; R07.9 Chest pain, unspecified; R35.0 Frequency of micturition; Z51.81 Encounter for therapeutic drug level monitoring; Z79.899 Other long term (current) drug therapy; D72.829 Elevated white blood cell count, unspecified; Z79.01 Long term (current) use of anticoagulants; K21.9 Gastro-esophageal reflux disease without esophagitis; Z91.198 Patient's noncompliance with other medical treatment and regimen for other reason; Z20.822 Contact with and (suspected) exposure to COVID-19; I10 Essential (primary) hypertension; I48.91 Unspecified atrial fibrillation